=== PATIENT | female | born 1955 | race American Indian/Alaskan Native ===

== ENCOUNTER 2016-11-30 09:26 | Outpatient (CLI) | payer BC ==
[2016-11-30] MEDS ORDERED: LEXISCAN IV ONE ×2 (12:46→12:51)
[2016-11-30 14:49] VITALS: BP 176/76
--- NOTE | 2016-12-01 22:11 | Treadmill Report ---
THALLIUM STRESS TEST LEFT VENTRICLE: Left ventricular chamber size is within normal. Perfusion study demonstrates homogeneous uptake of the tracer in all segments, no significant defects identified. Gated analysis demonstrates normal left ventricular systolic function, ejection fraction 77%. CONCLUSION: Normal myocardial perfusion study. JOB# [id number] CA/NTS
== END 2016-11-30 09:27 | disposition home or self-care (01) ==
LOC: CARD 09:26
PROVIDERS: ATTEND Internal Medicine
DX: R07.9 Chest pain, unspecified (principal)
CPT/HCPCS: 78452; 93017; A9502; J2785

== ENCOUNTER 2016-12-14 10:42 | Outpatient (CLI) | payer BC ==
[2016-12-14 12:13] LABS: Alanine Aminotransferase 16 units/L (7-56); Albumin 3.6 g/dL (3.9-5); Albumin/Globulin Ratio 1.1 %; Alkaline Phosphatase 94 units/L (35-129); Bilirubin,Direct < 0.2 mg/dL (0-0.2); Bilirubin,Total 0.6 mg/dL (0.1-1.2); Cholesterol 137 mg/dL (50-199); Glucose 180 mg/dL (65-100); HDL Cholesterol 45 mg/dL (40-59); LDL Cholesterol,Direct 79 mg/dL (50-130); Triglycerides 68 mg/dL (2-149)
== END 2016-12-14 10:43 | disposition home or self-care (01) ==
LOC: LAB 10:42
PROVIDERS: ATTEND Family Medicine
DX: E11.9 Type 2 diabetes mellitus without complications (principal); E78.5 Hyperlipidemia, unspecified; Z79.899 Other long term (current) drug therapy
CPT/HCPCS: 36415; 80061; 80074; 82565; 82947; 83036; 83525; 84681

== ENCOUNTER 2017-05-06 11:37 | Outpatient (CLI) | payer BC ==
--- NOTE | 2017-05-06 13:05 | XRay Report ---
ROUTINE CHEST, TWO VIEWS: HISTORY: Positive PPD. The trachea, heart, mediastinal contour, lung olsen and bony thorax are unremarkable. IMPRESSION: Unremarkable chest x-ray.
--- NOTE | 2017-05-06 13:46 | Ultrasound Report ---
Renal sonogram: History: CKD. Findings: Right kidney 9.9 x 5.6 x 4.8 cm. Cortical thickness 1.4 cm. 2 mm focal areas of increased echogenicity at the right kidney probably nonobstructing calculi. No mass. Left kidney 9.7 x 5.6 x 5.5 cm. Cortical thickness 1.4 cm. No mass. No hydronephrosis. Impression: Suspected nonobstructing small calculi right kidney.
== END 2017-05-06 11:38 | disposition home or self-care (01) ==
LOC: US 11:37
PROVIDERS: ATTEND Family Medicine
DX: I12.9 Hypertensive chronic kidney disease with stage 1 through stage 4 chronic kidney disease, or unspecified chronic kidney disease (principal); E11.22 Type 2 diabetes mellitus with diabetic chronic kidney disease; N18.2 Chronic kidney disease, stage 2 (mild); R76.11 Nonspecific reaction to tuberculin skin test without active tuberculosis; J45.909 Unspecified asthma, uncomplicated; I25.10 Atherosclerotic heart disease of native coronary artery without angina pectoris
CPT/HCPCS: 71020; 76770

== ENCOUNTER 2017-06-23 11:24 | Outpatient (CLI) | payer BC ==
--- NOTE | 2017-06-23 13:34 | Cat Scan Report ---
CT OF THE ABDOMEN AND PELVIS WITHOUT CONTRAST HISTORY: Edema unspecified. TECHNIQUE: Helical CT without contrast. Sagittal and coronal reformatted images. FINDINGS: Within the limits of a noncontrast exam, the abdominal and pelvic viscera are within normal limits. The liver, biliary system, pancreas, spleen, kidneys, adrenal glands and bladder are unremarkable. The bowel loops are normal caliber and wall thickness. Normal appendix. The aorta is normal caliber. No ascites, bulky adenopathy or inflammatory changes. Hysterectomy changes are suspected. No adnexal cyst or mass. No pelvic fluid collection. The lung bases are clear. Normal heart size. No suspicious bony lesion. IMPRESSION: Unremarkable noncontrast CT of the abdomen and pelvis.
== END 2017-06-23 11:25 | disposition home or self-care (01) ==
LOC: CT 11:24
PROVIDERS: ATTEND Surgery Vascular Surgery
DX: R60.9 Edema, unspecified (principal); I50.9 Heart failure, unspecified; I25.10 Atherosclerotic heart disease of native coronary artery without angina pectoris; E78.5 Hyperlipidemia, unspecified; J45.909 Unspecified asthma, uncomplicated; E11.9 Type 2 diabetes mellitus without complications; Z90.710 Acquired absence of both cervix and uterus
CPT/HCPCS: 74176

== ENCOUNTER 2017-09-10 07:38 | Outpatient (CLI) | payer BC | END 2017-09-10 07:39 | disposition home or self-care (01) | LOC: ECHO 07:38 | PROVIDERS: ATTEND Internal Medicine | DX: I51.7 Cardiomegaly (principal) | CPT/HCPCS: 93306 ==

== ENCOUNTER 2018-02-15 07:50 | Outpatient (CLI) | payer BC ==
[2018-02-15 09:06] LABS: Chol/HDL Ratio 3.31 %
== END 2018-02-15 07:51 | disposition home or self-care (01) ==
LOC: LAB 07:50
PROVIDERS: ATTEND Family Medicine
DX: E11.9 Type 2 diabetes mellitus without complications (principal); R79.82 Elevated C-reactive protein (CRP); I25.10 Atherosclerotic heart disease of native coronary artery without angina pectoris; I50.9 Heart failure, unspecified; J45.909 Unspecified asthma, uncomplicated
CPT/HCPCS: 36415; 80061; 82306; 83036; 86618

== ENCOUNTER 2022-06-18 09:47 | Outpatient (CLI) | payer MEDICARE ==
--- NOTE | 2022-06-18 13:02 | Cat Scan Report ---
CT ABDOMEN AND PELVIS WITHOUT CONTRAST INDICATION: I87.2 VENOUS INSUFFICIENCY CONTRAST: Without IV COMPARISON: 06/23/[address] scans at this location are performed using CT dose reduction for ALARA by means of automated e xposure control. Are NOTE: Resolution is decreased and artifact is introduced by the patient's size. FINDINGS: Lung bases are clear of infiltrates. Calcified granuloma is seen in the right lower lobe ne ar the major fissure. No pneumoperitoneum. Small fatty umbilical hernia without bowel. No significant abdominal wall hernia is seen but there is diffuse mild midline laxity. Gallbladder and bile ducts normal. Mild pancreatic atrophic changes seen. No abdominal masses. No lymphadenopathy. No bowel or urinary obstruction. Jose Manuel endix removed. No free fluid. No inflammatory changes. Uterus likely removed. No pelvic masses. IMPRESSION: No acute abnormalities are seen Signer Name: Padilla Curtis MD Signed: 06/18/2022 12:57 PM Workstation Name: [id number]
== END 2022-06-18 09:48 | disposition home or self-care (01) ==
LOC: CT 09:47
DX: K42.9 Umbilical hernia without obstruction or gangrene (principal); K86.89 Other specified diseases of pancreas; J84.10 Pulmonary fibrosis, unspecified; I87.2 Venous insufficiency (chronic) (peripheral)
CPT/HCPCS: 74177; Q9967